=== PATIENT | male | born 1985 | race Caucasian/White ===

== ENCOUNTER 2018-05-03 06:48 | Emergency (ER) | payer OTHER ==
--- NOTE | 2018-05-03 07:42 | RAD ---
INDICATION: Left ankle pain COMPARISON: None TECHNIQUE: AP, lateral, and oblique views were obtained. FINDINGS: The bony structures, joint spaces, and soft tissues are normal for age. IMPRESSION: NEGATIVE EXAMINATION.
--- NOTE | 2018-05-03 08:52 | ED ---
Lower Extremity - HPI Summary HPI Summary: Patient is a 32-year-old male presenting to the ED after running after a goose, hearing a "pop" and endorsed immediate pain to the posterior lower leg. Denies any ecchymosis to the area. Patient is nonambulatory. He does not take any medications [employer]. He has never injured the foot in the past. - History of Current Complaint Chief Complaint: EDExtremityLower Stated Complaint: LT ANKLE INJURY Time Seen by Provider: 05/03/18 06:55 Hx Obtained From: Patient Mechanism Of Injury: Twisted Onset of Pain: Immediate Onset/Duration: Minutes Severity Initially: Mild Severity Currently: Mild Pain Intensity: 3 Pain Scale Used: 0-10 Numeric Timing: Constant Location: Is Discrete @ - left achilles pain Associated Signs And Symptoms: Negative: Swelling, Redness Aggravating Factor(s): Standing, Ambulation Alleviating Factor(s): Rest Able to Bear Weight: No Related History: Occupational Injury - Risk Factors Gout Risk Factors: Negative DVT Risk Factors: Negative Septic Arthritis Risk Factor: Negative - Allergies/Home Medications Allergies/Adverse Reactions: Allergies Allergy/AdvReac Type Severity Reaction Status Date / Time No Known Allergies Allergy Verified 05/12/16 19:34 Home Medications: Home Medications NK [No Home Medications Reported] 05/03/18 [History Confirmed 05/03/18] PMH/Surg Hx/FS Hx/Imm Hx Previously Healthy: Yes - Surgical History Surgery Procedure, Year, and Place: FATTY TUMOR REMOVAL X2. VASECTOMY Infectious Disease History: No Infectious Disease History: Denies: Traveled Outside the [place] in Last 30 Days - Family History Known Family History: Positive: Hypertension - Social History Occupation: Employed Full-time Lives: Alone Alcohol Use: Rare Hx Substance Use: No Substance Use Type: Reports: None Hx Tobacco Use: No Smoking Status (MU): Never Smoked Tobacco Type: Smokeless Tobacco Length of Time of Smoking/Using Tobacco: 18 YRS Have You Smoked in the Last Year: Yes Review of Systems Constitutional: Negative Negative: Fever, Chills, Skin Diaphoresis Negative: Palpitations, Chest Pain Negative: Shortness Of Breath, Cough Genitourinary: Negative Positive: no symptoms reported, see HPI Positive: Myalgia - pain to the posterior lower leg, Decreased ROM Skin: Negative Neurological: Negative All Other Systems Reviewed And Are Negative: Yes Physical Exam - Summary Physical Exam Summary: Noticeable defect in Achilles tendon. Achilles tendon without bruising. Ankle without swelling or foot misalignment. Pulses intact and equal bilaterally. Normal cap refill. Comparison to unaffected side shows L Achilles tendon with noticeable concave defect approximately 3cm proximal to the insertion of the tendon. With patient lying prone, Achilles tendon with localized tenderness on palpation superior to the insertion of the tendon. Absence of plantar flexion while squeezing gastrocnemius shows positive Blake test. Patient lying prone with knees flexed at 90 degrees shows Dorsi-flexion of L foot indicating positive Matles test. No crepitus with passive motion. Triage Information Reviewed: Yes Vital Signs On Initial Exam: Initial Vitals Temp Pulse Resp BP Pulse Ox 98.4 F 87 18 128/77 97 05/03/18 06:49 05/03/18 06:49 05/03/18 06:49 05/03/18 06:49 05/03/18 06:49 Vital Signs Reviewed: Yes Appearance: Positive: Well-Appearing, Well-Nourished Skin: Positive: Warm, Skin Color Reflects Adequate Perfusion Head/Face: Positive: Normal Head/Face Inspection Eyes: Positive: EOMI, Conjunctiva Clear Neck: Positive: Supple, No Lymphadenopathy Respiratory/Lung Sounds: Positive: Clear to Auscultation, Breath Sounds Present Cardiovascular: Positive: RRR, Pulses are Symmetrical in both Upper and Lower Extremities Musculoskeletal: Positive: Pain @ - see above PE Neurological: Positive: Alert, Oriented to Person Place, Time Psychiatric: Positive: Normal, Affect/Mood Appropriate AVPU Assessment: Alert Diagnostics - Vital Signs Vital Signs Temp Pulse Resp BP Pulse Ox 05/03/18 06:49 98.4 F 87 18 128/77 97 - Laboratory Lab Statement: Any lab studies that have been ordered have been reviewed, and results considered in the medical decision making process. Lower Extremity Course/Dx - Course Course Of Treatment: Noticeable defect in L Achilles tendon. L achilles tendon without bruising. Ankle without swelling or foot misalignment. Pulses intact and equal bilaterally. Normal cap refill. Comparison to unaffected side shows L Achilles tendon with noticeable concave defect approximately 3cm proximal to the insertion of the tendon. With patient lying prone, Achilles tendon with localized tenderness on palpation superior to the insertion of the tendon. Absence of plantar flexion while squeezing gastrocnemius shows positive Blake test. Patient lying prone with knees flexed at 90 degrees shows Dorsi-flexion of L foot indicating positive Matles test. No crepitus with passive motion. No US or XRAY necessary. Clinical diagnoses were made based on the findings in the physical exam above. Positive Blake, positive Matles test and with noticeable defect proximal to the insertion of the tendon. No bruising or crepitus. Patient unable to bear weight. Posterior walking splint with sugar tong placed for immobilization with the ankle in some plantar flexion. Crutches given with patient tolerating well. Ibuprofen encouraged for swelling. Encouraged non-weight bearing until follow up with orthopedic physican in 3-5 days. - Diagnoses Provider Diagnoses: Achilles tendon rupture Discharge - Sign-Out/Discharge Documenting (check all that apply): Patient Departure - Discharge Plan Condition: Stable Disposition: HOME Patient Education Materials: Achilles Tendon Rupture (ED) Referrals: Lázaro Aceves MD [Medical Doctor] - No Primary Care Phys,NOPCP [Primary Care Provider] - Additional Instructions: Crutches for ambulation given. Ibuprofen 600mg three times daily with meals for pain. Follow up with orthopedic physician in 3-5 days. If numbness, tingling, decreased sensation, increased pain, temperature changes or pallor noted in toes, come back to ER immediately. Protect the area. Do not bear weight, pull or push with foot until follow up with orthopedics. Rest the involved area. Ice. Not directly on the skin. Cover with a towel. Apply ice no more than 30 minutes at a time Compression: Continue with posterior splint until follow up with ortho. Do not get wet. Elevate: Try to elevate the injured area above the heart whenever possible. - Billing Disposition and Condition Condition: STABLE Disposition: Home
[2018-05-03 09:02] VITALS: BP 129/84
== END 2018-05-03 09:01 | disposition home or self-care (01) ==
LOC: ED 06:48
DX: S86.012A Strain of left Achilles tendon, initial encounter (principal); X58.XXXA Exposure to other specified factors, initial encounter; Y93.02 Activity, running; Y92.9 Unspecified place or not applicable
CPT/HCPCS: 99281

== ENCOUNTER 2018-05-09 12:25 | Day surgery (SDC) | payer OTHER ==
[~2018-05-09 12:25] MED LIST: Buffered Lidocaine 0.9% SYRIN* 5 ML/SYR SYRINGE INTRADERM ONE; Dexamethasone IV* 4 MG/ML 1 ML (4 MG) IV SLOW PU ONE; Famotidine IV* 10 MG/ML 2 ML (20 mg) IV ONE
[2018-05-09] MEDS ORDERED: Dexamethasone IV* 4 MG/ML 1 ML (4 MG) ONE (12:36)
[2018-05-09] MEDS ORDERED: Famotidine IV* 10 MG/ML 2 ML (20 mg) ONE (12:36)
[2018-05-09] MEDS ORDERED: ceFAZolin 2 GM PREMIX (*) 2 GM/50 ML BAG IVPB ONE (12:36)
[2018-05-09] MEDS ORDERED: Naloxone* 0.4 MG/ML 1 ML VIAL IV PRN (14:56)
[2018-05-09] MEDS ORDERED: fentaNYL* 50 MCG/ML 2 ML VIAL (100 MCG VIAL) IV PRN (14:56)
[2018-05-09] MEDS ORDERED: HYDROcodone/ACETAMIN 5-325 MG* 1 TAB PO PRN (14:56)
[2018-05-09] MEDS ORDERED: DiMENhydriNATE IV* 50 MG/ML VIAL IV PUSH PRN (14:56)
[2018-05-09] MEDS ORDERED: oxyCODONE/Acetamin 5/325 MG* TAB PO PRN (14:56)
[2018-05-09] MEDS ORDERED: Lidocaine 2% PF * 5 ML VIAL ONE (15:00)
[2018-05-09] MEDS ORDERED: Midazolam* 1 MG/ML 5 ML VIAL (5 MG) ONE (15:00)
[2018-05-09] MEDS ORDERED: Propofol* 10 MG/ML 20 ML BTL IV PUSH ONE (15:00)
[2018-05-09] MEDS ORDERED: fentaNYL* 50 MCG/ML 2 ML VIAL (100 MCG VIAL) ONE ×2 (15:00→15:55)
[2018-05-09] MEDS ORDERED: Mivacurium Chloride* 20 MG/10 ML VIAL IV ONE (15:00)
[2018-05-09] MEDS ORDERED: ROPIVACAINE 5 MG/ML 30 ML BTL (0.5%) ONE (15:00)
[2018-05-09] MEDS ORDERED: Ketorolac INJ* 30 MG/ML 1 ML VIAL ONE (15:41)
[2018-05-09] MEDS ORDERED: EPHEDrine (Pressors)* 50 MG/ML VIAL ONE (16:04)
[2018-05-09] MEDS ORDERED: Ondansetron INJ* 2 MG/ML VIAL ONE (16:05)
[2018-05-09] MEDS ORDERED: oxyCODONE/Acetamin 5/325 MG* TAB ONE (17:40)
[2018-05-09 18:28] VITALS: BP 113/63
--- NOTE | 2018-05-14 04:08 | OP ---
DATE OF OPERATION: 05/09/18 - [facility] DATE OF : 81 SURGEON: Lázaro Aceves MD VIDEO TAPE EDITOR: ONESIMO Rosario. A physician campaign assistant was required for the length of the procedure for help with positioning, instrumentation, and closure. ANESTHESIOLOGIST: Dr. Theron Reynolds. ANESTHESIA: General anesthesia, local anesthesia, which consisted of 10 cc of 0.5% ropivacaine without epinephrine. PRE-OP DIAGNOSIS: Left Achilles tendon tear. POST-OP DIAGNOSIS: Left Achilles tendon tear. OPERATIVE PROCEDURE: Left open Achilles tendon repair. INDICATIONS: The patient is a 32-year-old man who works for the [employer] at [employer] with no prior history of left heel injury or pain, who presented to my clinic on 05/03/18 after having sustained an injury to his heel at 6:30 a.m. that morning at work. See history and physical for full details. In clinic, I have discussed pros and cons of nonoperative and operative management. The patient opted for operative management. The patient does not smoke, although he occasionally chews tobacco. On physical exam, I had diagnosed the patient with an Achilles tendon rupture. I confirmed this diagnosis with ultrasound imaging in the office. After the patient opted for surgery, I reminded him of risks and potential complications of surgery including bleeding, infection, nerve or blood vessel injury, ankle stiffness, Achilles tendon rerupture, and wound breakdown. The patient was placed in a new splint, posterior and sugar-tong. ANTIBIOTICS: Ancef 2 g IV. IV FLUIDS: 1400 cc of crystalloid. TOURNIQUET TIME: 49 minutes at 300 mmHg. RCKQ-[id number]-[id number] TIME: 43 minutes. SPECIMEN: None. IMPLANTS: None. ESTIMATED BLOOD LOSS: Minimal. COMPLICATIONS: None. DESCRIPTION OF PROCEDURE: Preoperatively, the patient signed a written consent. Operative extremity was marked in the preoperative holding. The splint was partially taken apart in preoperative holding. The patient was taken back to the operating room and intubated while on the stretcher. He was transferred into the prone position. The patient's operative table was well padded. All bony prominences were nicely padded. Pillows were placed under the chest, so bilateral axillae were free. Pads were placed under the knees. The heels were placed so that they would fall at the end of the bed. The tourniquet had been applied to the proximal left thigh prior to the flipping of the patient. The left lower extremity was prepped and draped. Surgical time-out was performed. Esmarch was applied and the tourniquet at the thigh was elevated to 300 mmHg. I made a skin incision along the posterior left ankle. A longitudinal incision centered about the palpable rupture site of the Achilles. This incision distally was medial and to the Achilles tendon brought more central proximally. Incision was 6 to 10 cm in length. I exchanged knives and dissected down to the paratenon. Using feathering strokes, I released some tissue of either side of the paratenon to help me with suture closure. I then incised the paratenon longitudinally. I encountered the fully ruptured Achilles tendon ends. Irrigation. I noted the tissue quality to be rather poor, especially proximally. The wound was dried nicely. I next placed a Krackow whipstitch 1 in the proximal stump and 1 in the distal stump using FiberWire #2 and brought the 2 ends of tendon together. This had the ankle positioned at approximately 20 degrees of plantar flexion, which I was fine with. I tied each suture with the ends of the Achilles tendon nicely opposed. I had 2 knots. I used the suture to pass the suture through the Achilles tendon and off to the medial and lateral sides, and then tied it again to make my original knots not prominent posteriorly. I next used horizontal mattress and [id number] stitches using Vicryl 0 suture to tubularize further and increase the strength of the repair. Irrigation. The Achilles tendon was nicely tubularized. Stitches with Vicryl had gone circumferentially about it. Plantaris tendon was not well visualized. I next closed the paratenon with several running stitches using Vicryl 2-0 suture. I next closed the subcutaneous tissue with buried simple stitches using Vicryl 3-0 suture. I next closed the skin with a running stitch using nylon 3- 0 suture. Local anesthesia was infiltrated into the subcutaneous tissues just proximal to the incision. Xeroform, 4x4's, sterile Webril. The foot, ankle, and lower leg were covered in Webril. I then placed a plaster splint, first a posterior slab and then a sugar-tong medial and lateral with the ankle in its repaired position of approximately 15 to 20 degrees of plantar flexion. Overwrapped splint, plaster, with Gerardo bandage. The tourniquet was dropped. The splint was hardened. The patient was placed back into the supine position on the stretcher. Pillows were placed under the left lower extremity. The patient was awakened and extubated. DISPOSITION: The patient was to be nonweightbearing postoperatively. Percocet as needed for pain control, aspirin x14 days, Keflex x7 days. The patient will follow up with me 10 to 14 days postoperatively. At this point, we will place the patient in a boot with felt wedges or a cast, for nonweightbearing for a total of 4 weeks postoperatively. [id number]/CPS #: [id number] MTDD
== END 2018-05-09 18:30 | disposition home or self-care (01) ==
LOC: OR 12:25
PROVIDERS: ATTEND Orthopaedic Surgery
DX: S86.012A Strain of left Achilles tendon, initial encounter (principal); X50.0XXA Overexertion from strenuous movement or load, initial encounter; Y93.89 Activity, other specified; Y92.214 College as the place of occurrence of the external cause; Y99.0 Civilian activity done for income or pay
CPT/HCPCS: A9270-GY; J0690; J1100; J1885; J2250; J2405; J2704; J2795; J3010